=== PATIENT | female | born 1990 | race Caucasian/White ===

== ENCOUNTER → 2017-06-11 | Outpatient (REF) | payer OTHER | LOC: M LAB REF 12:57 | PROVIDERS: ATTEND Physician Assistant | DX: J02.9 Acute pharyngitis, unspecified (principal) ==

== ENCOUNTER → 2017-12-06 | Outpatient (REF) | payer OTHER | LOC: M LAB REF 09:30 | DX: J02.9 Acute pharyngitis, unspecified (principal) | CPT/HCPCS: 87430 ==

== ENCOUNTER → 2017-12-19 | Outpatient (CLI) | payer OTHER ==
[2017-12-19 13:23] LABS: BASO # 0.1 10^3/uL (0.0-0.2); BASO % 1.4 % (0.0-1.0); EOS # 0.4 10^3/uL (0.0-0.50); EOS % 6.4 % (0.0-3.0); IMMATURE GRANULOCYTE % 0.2 % (0-3.0); LYMPH # 2.5 10^3/uL (1.5-6.5); LYMPH % 38.4 % (24.0-44.0); MEAN CORPUSCULAR HEMOGLOBIN 30.7 pg (27.0-33.0); MEAN CORPUSCULAR HGB CONC 33.3 g/dl (32.0-36.5); MEAN CORPUSCULAR VOLUME 92.1 fl (80.0-96.0); MONO # 0.4 10^3/uL (0.0-0.8); MONO % 6.2 % (0.0-5.0); NEUTROPHILS # 3.1 10^3/uL (1.8-7.7); NEUTROPHILS % 47.4 % (36.0-66.0); PLATELET COUNT, AUTOMATED 267 10^3/uL (150-450); RED BLOOD COUNT 4.56 10^6/uL (4.00-5.40); RED CELL DISTRIBUTION WIDTH 11.8 % (11.5-14.5); WHITE BLOOD COUNT 6.5 10^3/uL (4.0-10.0)
[2017-12-19 13:41] LABS: FOLLICLE STIMULATING HORMONE 6.5 mIU/mL; VITAMIN B12 LEVEL 652 PG/ML (247-911)
[2017-12-19 14:18] LABS: THYROID STIMULATING HORMONE 0.849 uIU/ML (0.358-3.740)
[2017-12-19 14:18] LABS: FREE T4 1.15 NG/DL (0.76-1.46)
[2017-12-20 14:14] LABS: TESTOSTERONE FREE (DIRECT) 1.2 pg/mL (0.0-4.2)
== END ==
LOC: M SMT 10:12
DX: L65.9 Nonscarring hair loss, unspecified (principal); F41.1 Generalized anxiety disorder; D51.9 Vitamin B12 deficiency anemia, unspecified; E28.2 Polycystic ovarian syndrome
CPT/HCPCS: 83001

== ENCOUNTER → 2018-12-20 | Outpatient (REF) | payer OTHER | LOC: M LAB REF 16:26 | PROVIDERS: ATTEND Physician Assistant | DX: R50.9 Fever, unspecified (principal); R05 Cough ==

== ENCOUNTER → 2019-02-12 | Outpatient (CLI) | payer OTHER ==
--- NOTE | 2019-02-12 14:41 | REP ---
Clinical: Nontraumatic pain Technique: AP, lateral, bilateral oblique views left foot . Findings: The osseous structures and joint spaces are intact and normal. There is no evidence for acute fracture or dislocation. Surrounding soft tissues are unremarkable. No subcutaneous emphysema or radiodense foreign body. Impression: Age-appropriate left foot series . No acute fracture or dislocation. Electronically Signed by Baltazar Mleendez MD 02/12/2019 02:32 P
[2019-02-12 17:18] LABS: BASO # 0.1 10^3/uL (0.0-0.2); BASO % 1.1 % (0.0-1.0); EOS # 0.3 10^3/uL (0.0-0.50); EOS % 4.5 % (0.0-3.0); HEMATOCRIT 40.6 % (36.0-47.0); HEMOGLOBIN 13.5 g/dl (12.0-15.5); LYMPH # 2.3 10^3/uL (1.5-6.5); LYMPH % 31.7 % (24.0-44.0); MEAN CORPUSCULAR HEMOGLOBIN 30.7 pg (27.0-33.0); MEAN CORPUSCULAR HGB CONC 33.3 g/dl (32.0-36.5); MEAN CORPUSCULAR VOLUME 92.3 fl (80.0-96.0); MONO # 0.5 10^3/uL (0.0-0.8); MONO % 6.5 % (0.0-5.0); NEUTROPHILS % 56.1 % (36.0-66.0); PLATELET COUNT, AUTOMATED 214 10^3/uL (150-450); WHITE BLOOD COUNT 7.1 10^3/uL (4.0-10.0)
[2019-02-12 18:05] LABS: ERYTHROCYTE SEDIMENTATION RATE 5 mm/hr (0-20)
[2019-02-14 14:42] LABS: Lyme Disease IgG/IgM Antibodie <0.91 ISR (0.00-0.90); Lyme Disease IgM Ab Quantitati <0.80 index (0.00-0.79)
== END ==
LOC: M SMT 14:16
PROVIDERS: ATTEND Family Medicine
DX: M79.675 Pain in left toe(s) (principal)

== ENCOUNTER 2019-05-26 10:14 | Day surgery (SDC) | payer OTHER ==
[~2019-05-26] VITALS: Ht 160 cm; Wt 45.3 kg
[~2019-05-26 10:14] MED LIST: KETOROLAC 60 MG/2 ML VIAL (J1885) As Ordered ONE; LIDOCAINE 1% MDV 20ML VIAL SQ PRN; LIDOCAINE 2% INJ 100 MG/5 ML SDV (FOR ANES.) As Ordered ONE; LR 1,000 ML IV ONE; MAPA325T2 PO; NAPR500T6 PO; NO ITAB PO; ONDANSETRON 4MG/2ML VIAL (J2405) As Ordered ONE; PROPOFOL 200 MG/20 ML VIAL As Ordered ONE; ceFAZolin SOD 2 GM in IV 1 EA IV ONE; dexameTHASONE 4 MG/ML 1ML VIAL (J1100) As Ordered ONE
[2019-05-26] MEDS ORDERED: BUPIVACAINE/EPIN 0.25% 30 ML VIAL As Ordered ONE ×2 (10:35→13:12)
[2019-05-26] MEDS ORDERED: phenergan PO (10:51)
[2019-05-26] MEDS ORDERED: MIDAZOLAM INJ 2 MG/2 ML VIAL (J2250) As Ordered ONE (11:38)
[2019-05-26] MEDS ORDERED: fentaNYL 100 MCG/2 ML INJECTION (J3010) As Ordered ONE ×2 (11:38→13:48)
[2019-05-26] MEDS ORDERED: PERCOCET 5MG/325MG TAB PO PRN (13:45)
[2019-05-26] MEDS ORDERED: ONDANSETRON 4MG/2ML VIAL (J2405) IV PRN (13:45)
[2019-05-26] MEDS ORDERED: LR 1,000 ML IV SCH (13:45)
[2019-05-26] MEDS: fentaNYL 100 MCG/2 ML INJECTION (J3010) IV PRN ×4 (13:50→14:05)
[2019-05-26] MEDS: HYDROMORPHONE HCL 0.5 MG/ 0.5 ML SYRINGE (J1170 PER 1) IV PRN ×2 (14:10→14:15)
[2019-05-26] MEDS ORDERED: diphenhydrAMINE INJ 50MG/ML VIAL (J1200) As Ordered ONE (14:24)
[2019-05-26] MEDS ORDERED: diphenhydrAMINE INJ 50MG/ML VIAL (J1200) IV PRN (14:30)
[2019-05-26] MEDS ORDERED: oxyCODONE 5MG TAB PO PRN ×2 (15:00)
[2019-05-26] MEDS ORDERED: MORPHINE 4 MG/ML 1ML VIAL/SYRINGE (J2270) IV PRN (15:00)
[2019-05-26 15:26] VITALS: BP 106/65
--- NOTE | 2019-05-27 06:51 | RO ---
DATE OF PROCEDURE: 05/26/2019 PREOPERATIVE DIAGNOSIS: Left medial meniscal tear. POSTOPERATIVE DIAGNOSIS: Left medial meniscal tear. PROCEDURE: Left knee partial medial meniscectomy. Extensive synovectomy of medial and lateral compartment. SURGEON: Dr. Demarco King BOX STRAPPER: None. ANESTHESIA: General. TOURNIQUET TIME: 20 minutes. PREOPERATIVE ANTIBIOTIC: 2 grams of Ancef. INDICATIONS: 29-year-old female who has been suffering with chronic anterior and medial knee pain ever since she had a twisting fall. Since that time, she had significant mechanical symptoms and has failed nonoperative treatment. She agreed to the risks and benefits including but not limited to infection, incomplete relief and need for further surgery and damage to surrounding structures. The patient expressed understanding and agreed with this plan. OPERATIVE PROCEDURE: Patient went back to the operating room (OR) and supine onto the operative and underwent general anesthesia at which point a time out was had confirming site, side and surgery. We then injected 20 mL of 0.25% Marcaine with epinephrine into the superior lateral portal for the left knee. We then prepped and draped the leg in the usual fashion, at which point, we had time out again confirming site, side and surgery. We then elevated the tourniquet up to 250 mmHg. We then made two stab incisions for the medial and lateral portals. We inserted the camera and evaluated the patellofemoral compartment, which looked pristine. There were no signs of any significant articular damage, just mild fraying on the inferior pole of the patella. We then turned our attention to the notch where we encountered a large anterior plica which we debrided. We then encountered significant synovium in front of the anterior portion of the medial and lateral compartments. We then took our time to extensively debride the area of both compartments, at which point, we were able to identify the anterior cruciate ligament (ACL) and posterior cruciate ligament (PCL). The PCL had significant synovium mucosum around it. We examined the area closely and did not see any sort of debris embedded within there and left that alone. The ACL and PCL were intact. We then turned our attention to the medial compartment. We found the anterior meniscal tear. There was a small flap on the anterior surface of it. We then debrided it with the shave, at which point, the remaining portions of the medial meniscus appeared to be intact. There was no degenerative chondral changes at this time. We then turned our attention to the lateral compartment. We thoroughly probed the lateral meniscus and did not appreciate any tear or increased extrusion. We were very happy with the state of the cartilage as well. At this point, we removed as much of the water as we could. We then injected another 20 mL of 0.25% Marcaine with epinephrine along the incisions and closed the wounds with #3-0 nylon, dressed it with Adaptic, gauze, ABD, Kerlix and Major. The tourniquet came down at 20 minutes. The patient was extubated and stably taken to the postanesthesia care unit (PACU). POSTOPERATIVE PLAN: The patient will be weight bear as tolerated, range of motion as tolerated, crutches as needed. Will see him in two weeks for incisions and assessment of her clinical exam to see if she needs physical therapy at that time. The patient expressed understanding and agreement with this plan.
== END 2019-05-26 15:42 | disposition home or self-care (01) ==
LOC: M SDC 10:14
PROVIDERS: ATTEND Orthopaedic Surgery Hand Surgery
DX: M23.232 Derangement of other medial meniscus due to old tear or injury, left knee (principal); K21.9 Gastro-esophageal reflux disease without esophagitis; F41.9 Anxiety disorder, unspecified; F32.9 Major depressive disorder, single episode, unspecified; G43.909 Migraine, unspecified, not intractable, without status migrainosus; Z79.899 Other long term (current) drug therapy; Z88.5 Allergy status to narcotic agent; Z88.8 Allergy status to other drugs, medicaments and biological substances; Z91.041 Radiographic dye allergy status
CPT/HCPCS: 29880; J0690; J1100; J1170; J1200; J1885; J2250; J2405; J3010

== ENCOUNTER → 2019-06-30 | Outpatient (CLI) | payer OTHER ==
[~2019-06-30] MED LIST changes: -KETOROLAC 60 MG/2 ML VIAL (J1885) As Ordered ONE; -LIDOCAINE 1% MDV 20ML VIAL SQ PRN; -LIDOCAINE 2% INJ 100 MG/5 ML SDV (FOR ANES.) As Ordered ONE; -LR 1,000 ML IV ONE; -ONDANSETRON 4MG/2ML VIAL (J2405) As Ordered ONE; -PROPOFOL 200 MG/20 ML VIAL As Ordered ONE; -ceFAZolin SOD 2 GM in IV 1 EA IV ONE; -dexameTHASONE 4 MG/ML 1ML VIAL (J1100) As Ordered ONE; +phenergan PO
[2019-06-30 14:22] LABS: BASO # 0.1 10^3/uL (0.0-0.2); BASO % 1.4 % (0.0-1.0); EOS # 0.5 10^3/uL (0.0-0.5); EOS % 8.5 % (0.0-3.0); HEMATOCRIT 43.5 % (36.0-47.0); HEMOGLOBIN 13.9 g/dl (12.0-15.5); LYMPH # 2.2 10^3/uL (1.5-5.0); LYMPH % 38.7 % (24.0-44.0); MEAN CORPUSCULAR HEMOGLOBIN 30.4 pg (27.0-33.0); MEAN CORPUSCULAR VOLUME 95.2 fl (80.0-96.0); MONO # 0.4 10^3/uL (0.0-0.8); NEUTROPHILS # 2.5 10^3/uL (1.5-8.5); NEUTROPHILS % 44.2 % (36.0-66.0); PLATELET COUNT, AUTOMATED 215 10^3/uL (150-450); RED BLOOD COUNT 4.57 10^6/uL (4.00-5.40); WHITE BLOOD COUNT 5.6 10^3/uL (4.0-10.0)
[2019-06-30 14:39] LABS: ALBUMIN 4.1 GM/DL (3.2-5.2); ALT/SGPT 18 U/L (12-78); BILIRUBIN,TOTAL 0.5 MG/DL (0.2-1.0); BLOOD UREA NITROGEN 12 MG/DL (7-18); CALCIUM LEVEL 8.7 MG/DL (8.5-10.1); CARBON DIOXIDE LEVEL 29 MEQ/L (21-32); CHLORIDE LEVEL 107 MEQ/L (98-107); CREATININE FOR GFR 0.81 MG/DL (0.55-1.30); FREE T4 1.03 NG/DL (0.76-1.46); GLOMERULAR FILTRATION RATE > 60.0 (>60); GLUCOSE, FASTING 79 MG/DL (70-100); SODIUM LEVEL 141 MEQ/L (136-145); THYROID STIMULATING HORMONE 0.638 uIU/ML (0.358-3.740); TOTAL PROTEIN 7.1 GM/DL (6.4-8.2); VITAMIN B12 LEVEL 755 PG/ML (247-911)
== END ==
LOC: M SMT 10:57
PROVIDERS: ATTEND Family Medicine
DX: D51.9 Vitamin B12 deficiency anemia, unspecified (principal); E28.2 Polycystic ovarian syndrome; Z13.29 Encounter for screening for other suspected endocrine disorder

== ENCOUNTER → 2019-08-25 | Outpatient (CLI) | payer OTHER ==
[2019-08-25 11:57] LABS: BASO # 0.1 10^3/uL (0.0-0.2); BASO % 0.3 % (0.0-1.0); EOS # 0.2 10^3/uL (0.0-0.5); EOS % 1.2 % (0.0-3.0); HEMATOCRIT 36.7 % (36.0-47.0); HEMOGLOBIN 11.8 g/dl (12.0-15.5); LYMPH % 13.6 % (24.0-44.0); MEAN CORPUSCULAR HEMOGLOBIN 29.6 pg (27.0-33.0); MEAN CORPUSCULAR HGB CONC 32.2 g/dl (32.0-36.5); MEAN CORPUSCULAR VOLUME 92.2 fl (80.0-96.0); MONO % 6.8 % (0.0-5.0); NEUTROPHILS # 11.2 10^3/uL (1.5-8.5); NEUTROPHILS % 77.5 % (36.0-66.0); PLATELET COUNT, AUTOMATED 556 10^3/uL (150-450); RED BLOOD COUNT 3.98 10^6/uL (4.00-5.40); WHITE BLOOD COUNT 14.5 10^3/uL (4.0-10.0)
[2019-08-25 12:27] LABS: MONO SCRN NEGATIVE (NEGATIVE)
[2019-08-25 12:32] LABS: ALT/SGPT 27 U/L (12-78); BILIRUBIN,TOTAL 0.7 MG/DL (0.2-1.0); BLOOD UREA NITROGEN 10 MG/DL (7-18); CALCIUM LEVEL 9.3 MG/DL (8.5-10.1); CARBON DIOXIDE LEVEL 26 MEQ/L (21-32); CHLORIDE LEVEL 103 MEQ/L (98-107); CREATININE FOR GFR 0.57 MG/DL (0.55-1.30); GLOMERULAR FILTRATION RATE > 60.0 (>60); GLUCOSE, FASTING 81 MG/DL (70-100); POTASSIUM SERUM 4.2 MEQ/L (3.5-5.1); SODIUM LEVEL 138 MEQ/L (136-145); TOTAL PROTEIN 7.2 GM/DL (6.4-8.2)
== END ==
LOC: M LAB 11:28
PROVIDERS: ATTEND Family Medicine
DX: J06.9 Acute upper respiratory infection, unspecified (principal)

== ENCOUNTER → 2019-09-16 | Outpatient (REF) | payer OTHER | LOC: M LAB REF 17:29 | PROVIDERS: ATTEND Physician Assistant | DX: N23 Unspecified renal colic (principal) ==

== ENCOUNTER → 2020-02-03 | Outpatient (CLI) | payer OTHER ==
[~2020-02-03] MED LIST changes: +ACET-683 PO; +EXCETAB22 PO; -MAPA325T2 PO; +MAPA325T8 PO; +MULTCAP PO
== END ==
LOC: M LABSMTC 10:06
PROVIDERS: ATTEND Anesthesiology
DX: Z03.818 Encounter for observation for suspected exposure to other biological agents ruled out (principal); Z11.59 Encounter for screening for other viral diseases
CPT/HCPCS: C9803; U0003

== ENCOUNTER 2020-02-06 05:57 | Day surgery (SDC) | payer OTHER ==
[~2020-02-06] VITALS: Ht 160 cm; Wt 45.8 kg
[~2020-02-06 05:57] MED LIST changes: -MULTCAP PO
[2020-02-06] MEDS ORDERED: LIDOCAINE 1% MDV 20ML VIAL ONE (05:58)
[2020-02-06] MEDS ORDERED: ROPIvacaine 0.5% 30ML INJECTION (J2795 PER 1MG) ONE (05:58)
[2020-02-06] MEDS ORDERED: dexameTHASONE 10MG/1ML VIAL PRES.FREE (J1100 PER 1MG) ONE (05:58)
[2020-02-06] MEDS ORDERED: MULTCAP PO (06:38)
[2020-02-06] MEDS ORDERED: ACETAMINOPHEN 1000MG 100ML IV BTL (OFIRMEV) (J0131 PER 10MG) As Ordered ONE (06:49)
[2020-02-06] MEDS ORDERED: ROCURONIUM BROMIDE 50 MG/5 ML VIAL As Ordered ONE (06:49)
[2020-02-06] MEDS ORDERED: KETOROLAC 60MG 2ML VIAL As Ordered ONE (06:49)
[2020-02-06] MEDS ORDERED: LIDOCAINE PRES-FREE 2% 10ML AMP As Ordered ONE (06:49)
[2020-02-06] MEDS ORDERED: dexameTHASONE 4 MG/ML 1ML VIAL (J1100 PER 1MG) As Ordered ONE (06:49)
[2020-02-06] MEDS ORDERED: propofoL 200 MG/20 ML VIAL As Ordered ONE (06:49)
[2020-02-06] MEDS ORDERED: ONDANSETRON 4MG/2ML VIAL As Ordered ONE (06:49)
[2020-02-06] MEDS ORDERED: fentaNYL 100 MCG/2 ML INJECTION (J3010) As Ordered ONE ×4 (06:50→10:43)
[2020-02-06] MEDS ORDERED: MIDAZOLAM INJ 2MG/2ML VIAL (J2250 PER 1MG) As Ordered ONE ×3 (06:50→10:43)
[2020-02-06] MEDS ORDERED: SUGAMMADEX SODIUM 500 MG/5 ML VIAL (BRIDION) As Ordered ONE (06:57)
[2020-02-06] MEDS ORDERED: LR 1,000 ML IV ONE (07:00)
[2020-02-06] MEDS ORDERED: ceFAZolin SOD 2 GM in IV 1 EA IV ONE (08:00)
[2020-02-06] MEDS ORDERED: LABETALOL 100MG/20ML VIAL As Ordered ONE (08:55)
[2020-02-06] MEDS ORDERED: ESMOLOL INJ 100MG/10ML VIAL As Ordered ONE (09:04)
[2020-02-06] MEDS ORDERED: PHENYLephrine HCL 500 MCG/5 ML (100MCG/ML) SYRINGE (J2370) As Ordered ONE ×2 (09:37→12:08)
[2020-02-06] MEDS ORDERED: BUPIVACAINE HCL 0.5% 30 ML VIAL As Ordered ONE (10:14)
[2020-02-06] MEDS ORDERED: BUPIVACAINE HCL 0.25% 30ML VIAL As Ordered ONE (10:14)
[2020-02-06] MEDS: fentaNYL 100 MCG/2 ML INJECTION (J3010) IV PRN ×4 (10:50→11:10)
[2020-02-06] MEDS: MIDAZOLAM INJ 2MG/2ML VIAL (J2250 PER 1MG) IV PRN ×2 (11:12→11:25)
[2020-02-06] MEDS ORDERED: LR 1,000 ML IV SCH ×2 (11:15→12:15)
[2020-02-06] MEDS ORDERED: ONDANSETRON 4MG/2ML VIAL IV PRN (12:30)
[2020-02-06 13:20] VITALS: BP 97/62
--- NOTE | 2020-02-09 17:46 | RO ---
DATE OF PROCEDURE: 02/06/2020 PREPROCEDURE DIAGNOSIS: Left ankle pain and instability. POSTPROCEDURE DIAGNOSES: 1. Left ankle instability. 2. Peroneal tendon tenosynovitis with low lying brevis. PROCEDURE: 1. Left ankle revision Brostrom-Boyce procedure. 2. Left peroneal tendon debridement with excision low lying brevis and tubularization of the peroneal brevis tendon. SURGEON: Kerry Dumont MD ANIMAL PHYSIOLOGY TEACHER: CHRIS Avina ANESTHESIA: General endotracheal. ESTIMATED BLOOD LOSS: 25 mL. COMPLICATIONS: None. CONDITION: Stable to recovery. INDICATIONS: Kelsea Wu is a 29-year-old female who has had longstanding pain and instability. She is status post a Brostrom-Boyce procedure many years ago. She has failed conservative measures. Risks and benefits of surgery were discussed with the patient in detail and include, but are not limited to, infection, damage to nerves and blood vessels, continued pain and stiffness, need for additional procedures. Informed consent was obtained in the office. DESCRIPTION OF PROCEDURE: The patient was met in the preoperative holding area where her left lower extremity was marked as the correct operative site. She was taken to the operating room, placed in the supine position on the operating room table. Bony prominences were well padded. Antibiotics were given within 60 minutes prior to incision. A well-padded tourniquet was placed on the left upper thigh. The left lower extremity was prepped and draped in the normal sterile fashion. An official time-out was held where the correct patient, operative side, and operative procedure were verified. The leg was exsanguinated and tourniquet was inflated to 250 mmHg. An incision was made over the posterior aspect of the fibula using the patient's prior scar. Peroneal tendons were identified. The sheath was incised, and the superior peroneal retinaculum was taken down and tagged for later repair. There was significant tenosynovitis within the tendon sheath, and this was removed. There was a low lying brevis muscle, which was also excised. The peroneal tendon was quite flat, and this was tubularized. I explored the entire posterior aspect of the fibula where the patient was having a fair amount of pain preoperatively, and there was no exposed suture or other foreign body from her past surgery. Copious irrigation was performed. I then took down the cuff of lateral ligament and capsule, including the anterior talofibular ligament (ATFL) and calcaneofibular ligament (CFL). There was a satisfactory amount of tissue in this region. It was of good strength. Again, there was no suture material identified in the regions of the ATFL or CFL. The lateral tibiotalar joint was also examined and found to be without any significant defect. Following this, two #3-0 SutureTak suture anchors were placed in the region of the ATFL and CFL. The cuff of tissue containing the capsule, ATFL and CFL was brought back up to the fibula and tied down with the foot in neutral position. It was further reinforced with #0 Vicryl. Following this, the patient's ankle was stable to anterior drawer and talar tilt testing. There was satisfactory motion at the subtalar joint as well. Copious irrigation was performed. The superior peroneal retinaculum was also repaired using #0 Vicryl. There was free gliding of the peroneal tendons following repair. Soft tissues were closed with #3-0 Vicryl and skin was closed using #3-0 nylon The patient was placed into a well-padded splint. She was extubated and transferred to the recovery room in stable condition. CHRIS Avina was present for the entire case and was essential for soft tissue retraction, suture placement, and overall decrease in tourniquet time, as well as skin closure. PLAN: The patient will be non-weightbearing in the left lower extremity for 6 weeks. She will be on aspirin for deep vein thrombosis (DVT) prophylaxis. I will see her back in 2 weeks for suture removal.
== END 2020-02-06 13:25 | disposition home or self-care (01) ==
LOC: M SDC 05:57
PROVIDERS: ATTEND Orthopaedic Surgery
DX: M25.372 Other instability, left ankle (principal); M76.72 Peroneal tendinitis, left leg; K21.9 Gastro-esophageal reflux disease without esophagitis; F41.9 Anxiety disorder, unspecified; F32.9 Major depressive disorder, single episode, unspecified; G43.909 Migraine, unspecified, not intractable, without status migrainosus; Z79.82 Long term (current) use of aspirin; Z79.899 Other long term (current) drug therapy; Z91.041 Radiographic dye allergy status; Z91.011 Allergy to milk products; Z91.010 Allergy to peanuts; Z88.5 Allergy status to narcotic agent; Z88.8 Allergy status to other drugs, medicaments and biological substances
CPT/HCPCS: 27659; 27698; 76000; C1713; J0131; J0690; J1100; J1885; J2250; J2370; J2405; J2795; J3010

== ENCOUNTER → 2020-02-17 | Outpatient (CLI) | payer OTHER ==
[~2020-02-17] MED LIST changes: +MULTCAP PO
--- NOTE | 2020-02-17 14:07 | REP ---
Clinical: Left lower extremity pain with recent surgery . Technique: Long scale and color Doppler evaluation left lower extremity using linear high frequency transducer. Findings: Ultrasound examination of the left lower extremity deep venous structures from the common femoral vein to the popliteal vein demonstrates normal compressibility flow and wave patterns in response to respiration and augmentation. There is no evidence for deep venous thrombosis. Impression: No evidence for deep venous thrombosis. Electronically Signed by Baltazar Melendez MD 02/17/2020 01:59 P
== END ==
LOC: M RAD 13:30
PROVIDERS: ATTEND Orthopaedic Surgery
DX: M79.662 Pain in left lower leg (principal)

== ENCOUNTER → 2020-08-04 | Outpatient (CLI) | payer OTHER ==
[2020-08-04 14:09] LABS: BASO # 0.1 10^3/uL (0.0-0.2); BASO % 1.1 % (0.0-1.0); EOS # 0.4 10^3/uL (0.0-0.5); HEMATOCRIT 41.8 % (36.0-47.0); HEMOGLOBIN 13.5 g/dl (12.0-15.5); LYMPH # 2.3 10^3/uL (1.5-5.0); LYMPH % 36.4 % (24.0-44.0); MEAN CORPUSCULAR HEMOGLOBIN 29.5 pg (27.0-33.0); MEAN CORPUSCULAR HGB CONC 32.3 g/dl (32.0-36.5); MEAN CORPUSCULAR VOLUME 91.5 fl (80.0-96.0); MONO # 0.5 10^3/uL (0.0-0.8); MONO % 7.6 % (0.0-5.0); NEUTROPHILS % 48.7 % (36.0-66.0); PLATELET COUNT, AUTOMATED 206 10^3/uL (150-450); RED BLOOD COUNT 4.57 10^6/uL (4.00-5.40); WHITE BLOOD COUNT 6.2 10^3/uL (4.0-10.0)
[2020-08-04 14:52] LABS: ALBUMIN 4.1 GM/DL (3.2-5.2); ALT/SGPT 33 U/L (12-78); BILIRUBIN,TOTAL 0.4 MG/DL (0.2-1.0); BLOOD UREA NITROGEN 12 MG/DL (7-18); CALCIUM LEVEL 9.1 MG/DL (8.5-10.1); CARBON DIOXIDE LEVEL 29 MEQ/L (21-32); CHLORIDE LEVEL 105 MEQ/L (98-107); CREATININE FOR GFR 0.65 MG/DL (0.55-1.30); FREE T4 1.05 NG/DL (0.76-1.46); GLOMERULAR FILTRATION RATE > 60.0 (>60); GLUCOSE, FASTING 81 MG/DL (70-100); SODIUM LEVEL 140 MEQ/L (136-145); TOTAL PROTEIN 7.2 GM/DL (6.4-8.2)
== END ==
LOC: M LAB 12:41
PROVIDERS: ATTEND Family Medicine
DX: Z13.0 Encounter for screening for diseases of the blood and blood-forming organs and certain disorders involving the immune mechanism (principal); Z13.29 Encounter for screening for other suspected endocrine disorder

== ENCOUNTER → 2020-10-07 | Outpatient (REF) | payer OTHER | LOC: M LAB REF 16:57 | PROVIDERS: ATTEND Physician Assistant | DX: N76.0 Acute vaginitis (principal) ==